=== PATIENT | female | born 1935 | race Caucasian/White ===

== ENCOUNTER 2018-11-17 20:54 | Inpatient (IN) | payer BC, MEDICARE ==
[2018-11-18] MEDS: traMADol 50 MG Tab PO PRN (01:21)
[2018-11-18] MEDS: CARVEDILOL 12.5 MG PO SCH ×4 (01:22→20:17)
--- NOTE | 2018-11-18 01:31 | ADMIT ---
DATE OF SERVICE: 11/17/2018 HISTORY OF PRESENT ILLNESS: She is admitted to observation for weakness involving both lower legs, mild dehydration, and she has renal disease. Her GFR is 28 tonight. I have not been able to compare that with the previous lab yet. The patient is not having any pain. She does not feel sick. She just has weakness that started yesterday and it got worse today to the point, where she is unable to stand or walk. We will monitor her input and output. An IV was attempted in the emergency room unsuccessfully due to poor veins. She states that she should be able to drink enough water and we will see how it goes tomorrow morning. If needed, we will consider an IV at that time. PHYSICAL EXAMINATION: VITAL SIGNS: This evening; blood pressure 158/89, pulse 67, she is afebrile, O2 sats are 96%, and respirations 16. LUNGS: Have decreased air exchange, but they are otherwise clear. CARDIAC: Heart sounds distinct. I do not hear a murmur today. SKIN: Warm and dry. EXTREMITIES: Her lower extremities reveal no edema and no pain to touch. HEENT: Her oral exam reveals mucous membranes are dry. TREATMENT PLAN: We will monitor the patient to try to increase her fluid intake and get her back on her medications, which she has not taken for a day or so. CRS/MODL /[id number] MTDD
[2018-11-18] MEDS ORDERED: Omeprazole 20 MG Cap.CR ONE (03:33)
[2018-11-18] MEDS: Non-Formulary Medication 1 Each (Omeprazole [Omeprazole] 20 MG) PO SCH ×2 (03:37→11:07)
[2018-11-18] MEDS ORDERED: Acetaminophen 650 MG Tab.ER ONE (07:53)
[2018-11-18] MEDS: LOSARTAN 100 MG PO SCH (07:55)
[2018-11-18] MEDS: Non-Formulary Medication 1 Each (Acetaminophen [Tylenol Arthritis] 650 MG) PO SCH (07:56)
[2018-11-18] MEDS ORDERED: FLUOXETINE HCL 20 MG PO SCH (08:00)
[2018-11-18] MEDS ORDERED: OXYBUTYNIN 5 MG PO SCH (08:00)
[2018-11-18] MEDS ORDERED: Non-Formulary Medication 1 Each (Levothyroxine [Synthroid] 88 MCG) PO SCH (08:00)
[2018-11-18] MEDS ORDERED: Levothyroxine 100 MCG Tab**PT OWN PO SCH (08:00)
[2018-11-18] MEDS ORDERED: HYDROXYCHLOROQUINE 200 MG PO SCH (08:00)
[2018-11-18] MEDS ORDERED: Oxybutynin 5 MG Tab.ER PO SCH (11:15)
[2018-11-18] MEDS ORDERED: DULoxetine 20 MG Cap PO SCH (11:15)
[2018-11-18] MEDS: Sodium Chloride 0.9% 1,000 ML IV SCH ×2 (11:30→23:32)
[2018-11-18] MEDS ORDERED: Docusate Sodium 100 MG Cap ONE (11:31)
--- NOTE | 2018-11-18 11:31 | PN ---
DATE OF VISIT: 11/18/2018 SUBJECTIVE: An 82-year-old lady who was admitted to observation last night through the emergency room for weakness and dehydration. She had bilateral leg weakness, mainly involving the lower legs, and was unable to walk. She has been resting quietly since last night. She did eat her breakfast. She has been drinking fluids fairly well. She did get up and go to the bathroom with assist x3 once this morning. The patient states that she feels okay. She has some chronic pain in the epigastric area, but she states she has had this for years. She also has had complaints of her legs being twitching or jumping. She states this did happen a couple of times during the night. Further questioning reveals that she does have history of restless legs syndrome and her daughter did bring in a bottle of Requip from home that we were not aware of. There seems to be several confusing things with her medications at this time. OBJECTIVE: VITAL SIGNS: Vital signs today are very good. Blood pressure 126/ 80, O2 sats are 94% on room air, pulse 64. HEENT: Oral mucous membranes are quite dry. Tonsils are not enlarged or injected. Pharynx is not inflamed. NECK: Supple. LUNGS: Clear. SKIN: Warm and dry. EXTREMITIES: Examining the patient's lower legs reveals skin is intact with no swelling and there is no tenderness with palpation of her lower legs today. ASSESSMENT AND PLAN: We will try to get an IV started today. If successful, we will give her some IV fluids starting at 75 mL an hour. We will change her pain medications, switching her Tylenol No.3 to t.i.d. and Ultram to p.r.n. and we will restart her Requip today. The patient's daughter is here at this time. We had a conversation about the patient living independently. It has been going well until lately. She may need to stay with us longer than a day or two if she does not respond to these initial treatment measures. I am not sure that she was taking her medications very accurately either since there has been pill bottle showing up on at least 3 different occasions that she has had, some of them are very old, but I went through her meds with nursing staff today and we tried to get more accurate on which she is taking according to her most recent med list taken from the clinic. CRS/MODL /[id number] MTDD
[2018-11-18] MEDS: Docusate Sodium 100 MG Cap PO PRN (11:55)
[2018-11-18] MEDS ORDERED: Ondansetron 4 MG/2 ML SDV IVPUSH PRN (12:45)
[2018-11-18] MEDS ORDERED: Ondansetron 4 MG/2 ML SDV ONE (12:47)
[2018-11-18] MEDS: Non-Formulary Medication 1 Each (Cholecalciferol (Vitamin D3) [Vitamin D3] 2,000 UNITS) PO SCH (13:03)
[2018-11-18] MEDS: JANTOVEN 5 MG PO SCH (17:26)
[2018-11-18] MEDS: DULoxetine 20 MG Cap PO SCH (20:17)
[2018-11-18] MEDS: OXYBUTYNIN 10 MG PO SCH (20:18)
[2018-11-18] MEDS: rOPINIRole 0.25 MG Tab PO SCH (20:18)
[2018-11-18] MEDS ORDERED: Calcium Carbonate 500 MG Tab.Chew ONE (20:22)
[2018-11-18] MEDS ORDERED: Calcium Carbonate 500 MG Tab.Chew PO ONE (20:25)
[2018-11-19] MEDS: ACETAMINOPHEN PO PRN (01:02)
[2018-11-19] MEDS: CODEINE PO PRN (01:02)
[2018-11-19] MEDS ORDERED: Ondansetron 4 MG Tab.DIS ONE (06:34)
[2018-11-19] MEDS: traMADol 50 MG Tab PO PRN ×2 (06:47→21:41)
[2018-11-19] MEDS ORDERED: Ondansetron 4 MG Tab.DIS PO PRN (06:48)
[2018-11-19] MEDS: Levothyroxine 100 MCG Tab PO SCH (07:08)
[2018-11-19] MEDS: Levothyroxine 50 MCG Tab PO SCH (07:09)
[2018-11-19] MEDS ORDERED: Furosemide 20 MG Tab**PT OWN PO SCH (08:00)
[2018-11-19] MEDS: Non-Formulary Medication 1 Each (Cholecalciferol (Vitamin D3) [Vitamin D3] 2,000 UNITS) PO SCH (08:02)
[2018-11-19] MEDS: LOSARTAN 100 MG PO SCH (08:03)
[2018-11-19] MEDS: CARVEDILOL 12.5 MG PO SCH ×2 (08:03→19:57)
[2018-11-19] MEDS: Docusate Sodium 100 MG Cap PO PRN ×2 (08:04→19:56)
[2018-11-19] MEDS: Non-Formulary Medication 1 Each (Acetaminophen [Tylenol Arthritis] 650 MG) PO SCH (08:07)
[2018-11-19] MEDS: Non-Formulary Medication 1 Each (Omeprazole [Omeprazole] 20 MG) PO SCH (08:07)
[2018-11-19] MEDS ORDERED: Magnesium Citrate Solution 296 ML Bottle ONE (11:43)
[2018-11-19] MEDS ORDERED: Magnesium Citrate Solution 296 ML Bottle PO ONE (12:20)
[2018-11-19] MEDS: fentaNYL 25 MCG/HR Transdermal Patch TRDERM SCH (15:41)
--- NOTE | 2018-11-19 17:27 | PN ---
DATE OF VISIT: 11/19/2018 SUBJECTIVE: She is here in the hospital on observation for weakness and dehydration. Yesterday, we gave the patient IV fluids for about 18 hours before her IV infiltrated. We then discontinued the IV early this morning. She is still complaining of pain in the epigastric area today. She tells me this pain has been there for years, but she also has not had a bowel movement since Tuesday. I understand she has been passing gas well. She has no strength in her legs at all. They were using a lift for the patient to use, a bedside commode. The patient states that she otherwise feels fine. She is not sick. She has been eating and drinking well. We repeated some labs today. CBC shows her neutrophils are slightly elevated. White count is still normal. Basic metabolic panel shows her kidney function has improved. Her creatinine is now 1.09, BUN is 17 compared to 25, and her GFR is currently 48; it was 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 There is stool retention that is significant. The radiologist felt that the hernias were chronic condition and that the constipation factor could be making things worse. TREATMENT PLAN: Today, the patient was given magnesium citrate. We will see if this provides a bowel movement. If this does not work, we will give the patient an enema. We will try to reduce the pressure on the abdomen by cleaning her out and see how much things improve. She still has extreme weakness. She states that her muscle twitching in the legs did improve last night. She did start taking her Requip again we gave it to her yesterday. She had not been taking that for a while at home. The patient will be monitored overnight, and I feel that longer-term arrangements are going to be needed with her. I will hand the patient off to Dr. Coe in the morning, who is coming on-call. CRS/MODL /[id number] ZAKIA
[2018-11-19] MEDS: JANTOVEN 5 MG PO SCH (18:20)
[2018-11-19] MEDS: OXYBUTYNIN 10 MG PO SCH (19:57)
[2018-11-19] MEDS: DULoxetine 20 MG Cap PO SCH (19:57)
[2018-11-19] MEDS: rOPINIRole 0.25 MG Tab PO SCH (19:57)
--- NOTE | 2018-11-19 20:01 | CT ---
DATE OF SERVICE: 11/19/2018 CLINICAL DATA: Abdominal pain. UNENHANCED ABDOMEN AND PELVIC CT: Multislice acquisition through the abdomen and pelvis without IV or oral contrast was performed. No priors. There are linear densities in both lower lungs consistent with linear atelectasis or fibrosis. The lung bases are otherwise clear. The heart size is enlarged. There is calcification in the region of the mitral valve annulus. There is a large right-sided hiatal hernia. It does contain a portion of the stomach and a segment of the transverse colon. The liver is normal size with homogeneous attenuation. The patient is status post cholecystectomy. The spleen appears normal. The pancreas is atrophic but otherwise is unremarkable. The right and left adrenals appear normal. There is atrophy of both kidneys. No nephrocalcinosis or nephrolithiasis. No hydronephrosis or or hydroureter. The bladder is fluid filled. It appears normal. The patient is status post hysterectomy. No evidence of appendicitis. There is a large amount of stool present throughout the ascending and transverse colon. There is diverticulosis of the descending and sigmoid colon. No evidence of diverticulitis. No free air. No free fluid. No dilated loops of bowel. No adenopathy. The distal abdominal aorta is aneurysmal. It measures 3.2 cm in diameter. There is a left inguinal hernia containing multiple loops of bowel. No obstruction associated with it. There is degenerative disc disease throughout the lower thoracic and lumbar spine. There is anterolisthesis of L3 on L4. There is vacuum disc phenomena at multiple levels. No other significant findings. [id number] [facility]
[2018-11-20] MEDS: traMADol 50 MG Tab PO PRN ×2 (05:53→20:45)
[2018-11-20] MEDS: Levothyroxine 100 MCG Tab PO SCH ×2 (05:56→06:08)
[2018-11-20] MEDS: Levothyroxine 50 MCG Tab PO SCH ×2 (05:57→06:08)
[2018-11-20] MEDS ORDERED: Bisacodyl 10 MG Supp ONE (07:13)
[2018-11-20] MEDS: Furosemide 20 MG Tab PO SCH (08:00)
[2018-11-20] MEDS: Non-Formulary Medication 1 Each (Cholecalciferol (Vitamin D3) [Vitamin D3] 2,000 UNITS) PO SCH (08:30)
[2018-11-20] MEDS: LOSARTAN 100 MG PO SCH (08:31)
[2018-11-20] MEDS: Non-Formulary Medication 1 Each (Omeprazole [Omeprazole] 20 MG) PO SCH (08:32)
[2018-11-20] MEDS: Non-Formulary Medication 1 Each (Acetaminophen [Tylenol Arthritis] 650 MG) PO SCH (08:41)
[2018-11-20] MEDS: CARVEDILOL 12.5 MG PO SCH (08:45)
--- NOTE | 2018-11-20 12:42 | ER ---
HISTORY OF PRESENT ILLNESS: 82-year-old lady who comes in by ambulance with complaints of bilateral lower leg weakness. She states that this started yesterday. She had 1 episode where her legs were weak and they twitched a few times, then it seemed to get better. Today, she went to the bathroom and was unable to stand up. She states that her legs are very weak. She does not feel she can stand, and they are twitching more today. The patient does not feel sick. She has not had any falls or injuries. She states that she is not having any pain. OBJECTIVE: GENERAL APPEARANCE: The patient is awake and alert. No obvious distress. VITAL SIGNS: Reviewed. She is afebrile. Blood pressure 158/89, pulse 67, O2 sats are 96%. HEENT: Oral mucous membranes are dry. Tonsils are not enlarged or injected. Pharynx not inflamed. NECK: Supple. LUNGS: Clear with reduced air exchange throughout the lung baltazar. CARDIAC: Heart sounds distinct. No murmurs noted. EXTREMITIES: Examining the patient's lower legs reveal the skin is intact. There are multiple spider veins present on the lower legs and ankles. There is no swelling, and the legs are not twitching or moving abnormally today. Feet are cool. Pedal pulses are present. LABORATORY DATA: CBC is normal. Comprehensive metabolic panel shows a sodium level of 133, creatinine is 1.72, BUN is normal at 25. GFR is 28, calcium 8.4. Liver enzymes are normal. TSH is normal at 3.7. DIAGNOSES: 1. Leg weakness. 2. Mild dehydration. 3. Renal disease. I am not sure if this is new or old, I will check on this. ASSESSMENT AND PLAN: The patient will be admitted for observation. An IV was attempted but at this time was not successful. The patient states she can drink fluid, and nursing staff will give her extra water to drink. We will get a urine as well in the morning and monitor the patient to see how she does. CRS/MODL /[id number]
[2018-11-20] MEDS: Sodium Chloride 0.9% 1,000 ML IV SCH ×2 (15:06→22:14)
--- NOTE | 2018-11-20 17:00 | PCM.HP ---
H&P History of Present Illness - General Date of Service: 11/20/18 Admit Problem/Dx: Admission Diagnosis/Problem Admission Diagnosis/Problem Weakness Source of Information: Patient, Family History Limitations: Reports: Altered Mental Status - History of Present Illness Initial Comments - Free Text/Narative: This is a 82yo F with some confusion and possible altered mental status. Her daughter is present. She was placed in observation for leg weakness, dehydration and renal dysfunction. She has hyponatremia and confusion at this time. Per daughter she is still concerned that her mother is still weak as she lives at home alone. There are concerns of safety and falls at home. Onset of Symptoms: Reports: Gradual, Unknown/Unsure Duration of Symptoms: Reports: Chronic, Getting Worse Location: Reports: Generalized Severity: Moderate Improves with: Reports: None Worsens with: Reports: None Associated Symptoms: Reports: Confusion Back Pain Score (Numeric/FACES): 3 - Related Data Allergies/Adverse Reactions: Allergies Allergy/AdvReac Type Severity Reaction Status Date / Time Iodinated Contrast- Oral and Allergy Renal Verified 11/17/18 21:47 IV Dye Failure morphine Allergy Itching Verified 11/17/18 21:47 Sulfa (Sulfonamide Allergy Blisters Verified 11/17/18 21:47 Antibiotics) Home Medications: Home Meds Acetaminophen [Tylenol Arthritis] 650 mg PO DAILY 05/14/13 [History] Carvedilol 12.5 mg PO BID 05/14/13 [History] Cholecalciferol (Vitamin D3) [Vitamin D3] 2,000 units PO DAILY 05/14/13 [History ] FLUoxetine HCl [Fluoxetine HCl] 20 mg PO DAILY 05/14/13 [History] Furosemide 20 mg PO DAILY 05/14/13 [History] Hydroxychloroquine [Plaquenil] 200 mg PO BID 05/14/13 [History] Levothyroxine [Synthroid] 88 mcg PO DAILY 05/14/13 [History] Levothyroxine [Synthroid] 100 mcg PO DAILY 05/14/13 [History] Losartan [Cozaar] 100 mg PO DAILY 05/14/13 [History] Omeprazole 20 mg PO DAILY 05/14/13 [History] Oxybutynin 5 mg PO DAILY 05/14/13 [History] fentaNYL [Duragesic] 25 mcg 05/14/13 [History] traMADol [Ultram] 50 mg PO PRN 05/14/13 [History] Past Medical History HEENT History: Reports: Cataract, Macular Degeneration Cardiovascular History: Reports: Hypertension, Stents [employer] History: Reports: Musculoskeletal History: Reports: Arthritis, Back Pain, Chronic, Other (See Below) Other Musculoskeletal History: Bursitis Psychiatric History: Reports: Anxiety, Depression Endocrine/Metabolic History: Reports: Hypoparathyroidism - Infectious Disease History Infectious Disease History: Reports: Chicken Pox, Measles, Rheumatic Fever - Past Surgical History HEENT Surgical History: Reports: Cataract Surgery Musculoskeletal Surgical History: Reports: Knee Replacement, Shoulder Replacement, Other (See Below) Other Musculoskeletal Surgeries/Procedures:: Lumbar surgery 2x Social & Family History - Tobacco Use Smoking Status *Q: Former Smoker Years of Tobacco use: 30 Packs/Tins Daily: 2 Used Tobacco, but Quit: No Tobacco Use Comment: Patient already quitted smoking Second Hand Smoke Exposure: No - Caffeine Use Caffeine Use: Reports: Coffee - Recreational Drug Use Recreational Drug Use: No - Living Situation & Occupation Living situation: Reports: H&P Review of Systems - Review of Systems: Review Of Systems: ROS reveals no pertinent complaints other than HPI. Exam - Exam Exam: See Below - Vital Signs Vital Signs: Last Vital Signs Temp 36.3 C 11/20/18 15:10 Pulse 59 L 11/20/18 15:10 Resp 18 11/20/18 15:10 BP 129/62 11/20/18 15:10 Pulse Ox 92 L 11/20/18 15:10 Weight: 103.873 kg - Exam General: Alert, Cooperative, Other (confused) HEENT: PERRLA, Conjunctiva Clear, EACs Clear, EOMI Neck: Supple, Trachea Midline Lungs: Clear to Auscultation, Normal Respiratory Effort Cardiovascular: Regular Rate, Regular Rhythm GI/Abdominal Exam: Normal Bowel Sounds, Soft, Non-Tender Back Exam: Normal Inspection Extremities: Normal Inspection Peripheral Pulses: 2+: Dorsalis Pedis (L), Dorsalis Pedis (R) Skin: Warm, Dry, Intact Neurological: Cranial Nerves Intact Neuro Extensive - Mental Status: Alert, Normal Mood/Affect, Normal Cognition, Disorientation to Time, Inattentive, Memory Loss-Recent Events - Patient Data Lab Results Last 24 hrs: Laboratory Results - last 24 hr 11/20/18 11/20/18 Range/Units 07:30 09:00 WBC 9.1 (4.0-11.0) K/uL RBC 3.90 (3.80-5.80) M/uL Hgb 12.4 (11.5-16.5) g/dL Hct 37.3 (37.0-47.0) % MCV 96 (76-96) fL MCH 31.8 (27.0-32.0) pg MCHC 33.2 (31.0-35.0) g/dL RDW 12.8 (11.0-16.0) % Plt Count 309 (150-500) K/uL MPV 9.5 (6.0-10.0) fL Neut % (Auto) 78.9 H (45.0-70.0) % Lymph % (Auto) 13.1 L (20.0-40.0) % Mcintosh % (Auto) 6.4 (3.0-10.0) % Eos % (Auto) 1.3 (1.0-5.0) % Baso % (Auto) 0.3 (0.0-0.5) % Neut # (Auto) 7.16 (2.00-7.50) K/uL Lymph # (Auto) 1.19 L (1.50-4.00) K/uL Mcintosh # (Auto) 0.58 (0.20-0.80) K/uL Eos # (Auto) 0.12 (0.04-0.40) K/uL Baso # (Auto) 0.03 (0.02-0.10) K/uL Sodium 131 L (136-145) mmol/L Potassium 4.5 (3.5-5.1) mmol/L Chloride 95 L (98-107) mmol/L Carbon Dioxide 29.0 (21.0-32.0) mmol/L Anion Gap 11.5 (5.0-15.0) mmol/L BUN 18 (8-26) mg/dL Creatinine 1.03 H (0.55-1.02) mg/dL Est Cr Clr Drug Dosing 43.97 mL/min Estimated GFR (MDRD) 51 L (>60) MLS/MIN BUN/Creatinine Ratio 17.5 (6-25) Glucose 99 (74-100) mg/dL Calcium 8.2 L (8.5-10.1) mg/dL Total Bilirubin 0.6 (0.0-1.0) mg/dL AST 22 (15-37) U/L ALT 16 (12-78) U/L Alkaline Phosphatase 85 (46-116) U/L Total Protein 6.4 (6.4-8.2) g/dL Albumin 3.1 L (3.4-5.0) g/dL Globulin 3.3 (2.2-4.2) g/dL Albumin/Globulin Ratio 0.9 (0.8-2.0) Result Diagrams: 11/20/18 07:30 11/20/18 09:00 - Problem List (1) Confusion SNOMED Code(s): 953322117 ICD Code: R41.0 - DISORIENTATION, UNSPECIFIED Status: Acute Priority: High Current Visit: Yes (2) Hyponatremia SNOMED Code(s): 91357717 ICD Code: E87.1 - HYPO-OSMOLALITY AND HYPONATREMIA Status: Acute Priority : High Current Visit: Yes (3) Renal dysfunction Status: Chronic Priority: High Current Visit: Yes Problem List Initiated/Reviewed/Updated: Yes Orders Last 24hrs: Active Orders 24 hr Category Date Time Status Patient Status [ADT] Routine ADT 11/20/18 12:02 Active Oxygen Therapy [RC] PRN Care 11/20/18 12:02 Active Vital Signs [RC] Q4H Care 11/20/18 12:02 Active Consult to Occupational Therapy [OT Evaluation and Cons 11/20/18 12:02 Active Treatment] [CONS] Routine Consult to Physical Therapy [PT Evaluation and Cons 11/20/18 12:01 Active Treatment] [CONS] Routine BASIC METABOLIC PANEL,BMP [CHEM] AM Lab 11/21/18 05:11 Ordered BASIC METABOLIC PANEL,BMP [CHEM] AM Lab 11/22/18 05:11 Ordered BASIC METABOLIC PANEL,BMP [CHEM] AM Lab 11/23/18 05:11 Ordered CBC WITH AUTO DIFF [HEME] AM Lab 11/21/18 05:11 Ordered CBC WITH AUTO DIFF [HEME] AM Lab 11/22/18 05:11 Ordered CBC WITH AUTO DIFF [HEME] AM Lab 11/23/18 05:11 Ordered Acetaminophen [Tylenol Arthritis Pain] Med 11/21/18 08:00 Active 650 mg PO DAILY Carvedilol [Coreg] Med 11/20/18 20:00 Active 12.5 mg PO BID Cholecalciferol (Vitamin D3) [Vitamin D3] Med 11/21/18 08:00 Active 2,000 unit PO DAILY Furosemide [Lasix] Med 11/20/18 08:00 Active 20 mg PO DAILY Losartan [Cozaar] Med 11/21/18 08:00 Active 100 mg PO DAILY Omeprazole Med 11/21/18 07:00 Active 20 mg PO ACBREAKFAST Oxybutynin [Oxybutynin ER] Med 11/21/18 08:00 Active 10 mg PO DAILY Sodium Chloride 0.9% [Normal Saline] 1,000 ml Med 11/20/18 10:30 Active IV ASDIRECTED Warfarin [Coumadin] Med 11/20/18 18:00 Active 5 mg PO DAILY@1800 Medication Orders Acetaminophen (Tylenol Arthritis Pain) 650 mg PO DAILY [facility] Acetaminophen/Codeine Phosphate (Tylenol With Codeine No.3 300mg/30mg) 1 tab PO Q8H PRN PRN Reason: PAIN Last Admin: 11/19/18 01:02 Dose: 1 tab Carvedilol (Coreg) 12.5 mg PO BID [facility] Cholecalciferol (Vitamin D3) 2,000 unit PO DAILY [facility] Docusate Sodium (Colace) 100 mg PO BID PRN PRN Reason: Constipation Last Admin: 11/19/18 19:56 Dose: 100 mg Admin: 11/19/18 08:04 Dose: 100 mg Admin: 11/18/18 11:55 Dose: 100 mg Duloxetine HCl (Cymbalta) 20 mg PO BEDTIME [facility] Last Admin: 11/19/18 19:57 Dose: 20 mg Admin: 11/18/18 20:17 Dose: 20 mg Fentanyl (Duragesic) 25 mcg TRDERM Q72H [facility] Last Admin: 11/19/18 15:41 Dose: 25 mcg Furosemide (Lasix) 20 mg PO DAILY [facility] Last Admin: 11/20/18 08:00 Dose: Sodium Chloride (Normal Saline) 1,000 mls @ 150 mls/hr IV ASDIRECTED [facility] Last Admin: 11/20/18 15:06 Dose: 150 mls/hr Levothyroxine Sodium (Synthroid) 50 mcg PO ACBREAKFAST [facility] Last Admin: 11/20/18 06:08 Dose: Not Given Admin: 11/20/18 05:57 Dose: 50 mcg Admin: 11/19/18 07:09 Dose: 50 mcg Levothyroxine Sodium (Synthroid) 100 mcg PO ACBREAKFAST [facility] Last Admin: 11/20/18 06:08 Dose: Not Given Admin: 11/20/18 05:56 Dose: 100 mcg Admin: 11/19/18 07:08 Dose: 100 mcg Losartan Potassium (Cozaar) 100 mg PO DAILY [facility] Omeprazole (Omeprazole) 20 mg PO ACBREAKFAST [facility] Ondansetron HCl (Zofran) 4 mg IVPUSH Q4H PRN PRN Reason: Nausea/Vomiting Last Admin: 11/18/18 13:05 Dose: 4 mg Ondansetron HCl (Zofran Odt) 4 mg PO ONETIME PRN PRN Reason: Nausea Last Admin: 11/19/18 19:56 Dose: 4 mg Oxybutynin Chloride (Oxybutynin Er) 10 mg PO DAILY [facility] Ropinirole HCl (Requip) 0.25 - 0.5 mg PO BEDTIME [facility] Last Admin: 11/19/18 19:57 Dose: 0.5 mg Admin: 11/18/18 20:18 Dose: 0.5 mg Tramadol HCl (Ultram) 50 mg PO Q8HR PRN PRN Reason: Pain Last Admin: 11/20/18 05:53 Dose: 50 mg Admin: 11/19/18 21:41 Dose: 50 mg Admin: 11/19/18 06:47 Dose: 50 mg Admin: 11/18/18 01:21 Dose: 50 mg Warfarin Sodium (Coumadin) 5 mg PO DAILY@1800 [facility] Assessment/Plan Comment:: Patient to be admitted to inpatient for hyponatremia management, confusion and chronic renal dysfunction with ongoing generalized weakness. We will start PT this week and slowly increase her endurance and stability. Patient is a fall risk at this time and unsafe for home. Hopefully her sodium correction will improve her mental status.
[2018-11-20] MEDS ORDERED: Warfarin 5 MG Tab PO SCH (18:00)
[2018-11-20] MEDS: DULoxetine 20 MG Cap PO SCH (19:34)
[2018-11-20] MEDS: Carvedilol 12.5 MG Tab PO SCH (19:34)
[2018-11-20] MEDS: rOPINIRole 0.25 MG Tab PO SCH (19:35)
[2018-11-21] MEDS: Sodium Chloride 0.9% 1,000 ML IV SCH ×2 (04:20→18:26)
[2018-11-21] MEDS: traMADol 50 MG Tab PO PRN (04:46)
[2018-11-21] MEDS: Omeprazole 20 MG Cap.CR PO SCH (07:11)
[2018-11-21] MEDS: Levothyroxine 100 MCG Tab PO SCH (07:12)
[2018-11-21] MEDS: Levothyroxine 50 MCG Tab PO SCH (07:12)
[2018-11-21] MEDS ORDERED: Oxybutynin 5 MG Tab.ER ONE (08:16)
[2018-11-21] MEDS: Oxybutynin 5 MG Tab.ER PO SCH (08:34)
[2018-11-21] MEDS: Docusate Sodium 100 MG Cap PO PRN (08:34)
[2018-11-21] MEDS: Losartan 50 MG Tab PO SCH (08:35)
[2018-11-21] MEDS: Acetaminophen 650 MG Tab.ER PO SCH (08:35)
[2018-11-21] MEDS: Cholecalciferol (Vitamin D3) 2,000 Unit Cap PO SCH (08:35)
[2018-11-21] MEDS: Furosemide 20 MG Tab PO SCH (08:36)
[2018-11-21] MEDS: ACETAMINOPHEN PO PRN (08:36)
[2018-11-21] MEDS: CODEINE PO PRN (08:36)
[2018-11-21] MEDS: Carvedilol 12.5 MG Tab PO SCH ×2 (08:37→19:45)
--- NOTE | 2018-11-21 11:03 | PCM.PN ---
- General Info Date of Service: 11/21/18 Subjective Update: Patient continues to be confused. She has an altered mental status and unable to recall short term memory. She denies any issues or current concerns the past day. She states she feels tired and weak and unable to move. According to family her weakness has been present but never this severe. Family do mention issues with cognition and confusion that remain and that is not her baseline. Functional Status: Reports: Tolerating Diet, Other (patient unable to ambulate) - Review of Systems General: Reports: Weakness HEENT: Reports: No Symptoms Pulmonary: Reports: Shortness of Breath Cardiovascular: Reports: No Symptoms Gastrointestinal: Reports: No Symptoms Musculoskeletal: Reports: Back Pain Skin: Reports: No Symptoms Neurological: Reports: Confusion, Difficulty Walking, Weakness Psychiatric: Reports: Confusion - Patient Data Vitals - Most Recent: Last Vital Signs Temp 36.8 C 11/20/18 20:00 Pulse 72 11/21/18 08:37 Resp 20 11/20/18 20:00 BP 154/59 H 11/21/18 08:37 Pulse Ox 94 L 11/20/18 20:00 Weight - Most Recent: 103.873 kg I&O - Last 24 Hours: Intake & Output 11/20/18 11/21/18 11/21/18 22:59 06:59 14:59 Intake Total 1607 1957 Balance 1607 1957 Lab Results Last 24 Hours: Laboratory Results - last 24 hr 11/21/18 11/21/18 11/21/18 Range/Units 07:25 07:25 08:50 WBC 11.9 H D (4.0-11.0) K/uL RBC 3.70 L (3.80-5.80) M/uL Hgb 11.5 (11.5-16.5) g/dL Hct 35.7 L (37.0-47.0) % MCV 97 H (76-96) fL MCH 31.1 (27.0-32.0) pg MCHC 32.2 (31.0-35.0) g/dL RDW 13.1 (11.0-16.0) % Plt Count 285 (150-500) K/uL MPV 9.5 (6.0-10.0) fL Neut % (Auto) 77.1 H (45.0-70.0) % Lymph % (Auto) 13.0 L (20.0-40.0) % [place] % (Auto) 6.2 (3.0-10.0) % Eos % (Auto) 3.4 (1.0-5.0) % Baso % (Auto) 0.3 (0.0-0.5) % Neut # (Auto) 9.14 H (2.00-7.50) K/uL Lymph # (Auto) 1.54 (1.50-4.00) K/uL [place] # (Auto) 0.73 (0.20-0.80) K/uL Eos # (Auto) 0.40 (0.04-0.40) K/uL Baso # (Auto) 0.04 (0.02-0.10) K/uL PT 71.5 H D (9.0-11.5) sec INR 8.0 H* D (1.0-3.5) Sodium 131 L (136-145) mmol/L Potassium 4.5 (3.5-5.1) mmol/L Chloride 97 L (98-107) mmol/L Carbon Dioxide 27.4 (21.0-32.0) mmol/L Anion Gap 11.1 (5.0-15.0) mmol/L BUN 17 (8-26) mg/dL Creatinine 0.97 (0.55-1.02) mg/dL Est Cr Clr Drug Dosing 46.69 mL/min Estimated GFR (MDRD) 55 L (>60) MLS/MIN BUN/Creatinine Ratio 17.5 (6-25) Glucose 88 (74-100) mg/dL Calcium 7.5 L (8.5-10.1) mg/dL Med Orders - Current: Current Medications Acetaminophen (Tylenol Arthritis Pain) 650 mg PO DAILY [facility] Last Admin: 11/21/18 08:35 Dose: 650 mg Acetaminophen/Codeine Phosphate (Tylenol With Codeine No.3 300mg/30mg) 1 tab PO Q8H PRN PRN Reason: PAIN Last Admin: 11/21/18 08:36 Dose: 1 tab Carvedilol (Coreg) 12.5 mg PO BID [facility] Last Admin: 11/21/18 08:37 Dose: 12.5 mg Cholecalciferol (Vitamin D3) 2,000 unit PO DAILY [facility] Last Admin: 11/21/18 08:35 Dose: 2,000 unit Docusate Sodium (Colace) 100 mg PO BID PRN PRN Reason: Constipation Last Admin: 11/21/18 08:34 Dose: 100 mg Duloxetine HCl (Cymbalta) 20 mg PO BEDTIME [facility] Last Admin: 11/20/18 19:34 Dose: 20 mg Fentanyl (Duragesic) 25 mcg TRDERM Q72H [facility] Last Admin: 11/19/18 15:41 Dose: 25 mcg Furosemide (Lasix) 20 mg PO DAILY [facility] Last Admin: 11/21/18 08:36 Dose: 20 mg Sodium Chloride (Normal Saline) 1,000 mls @ 150 mls/hr IV ASDIRECTED [facility] Last Admin: 11/21/18 04:20 Dose: 150 mls/hr Levothyroxine Sodium (Synthroid) 50 mcg PO ACBREAKFAST [facility] Last Admin: 11/21/18 07:12 Dose: 50 mcg Levothyroxine Sodium (Synthroid) 100 mcg PO ACBREAKFAST [facility] Last Admin: 11/21/18 07:12 Dose: 100 mcg Losartan Potassium (Cozaar) 100 mg PO DAILY [facility] Last Admin: 11/21/18 08:35 Dose: 100 mg Omeprazole (Omeprazole) 20 mg PO ACBREAKFAST [facility] Last Admin: 11/21/18 07:11 Dose: 20 mg Ondansetron HCl (Zofran) 4 mg IVPUSH Q4H PRN PRN Reason: Nausea/Vomiting Last Admin: 11/18/18 13:05 Dose: 4 mg Ondansetron HCl (Zofran Odt) 4 mg PO ONETIME PRN PRN Reason: Nausea Last Admin: 11/19/18 19:56 Dose: 4 mg Oxybutynin Chloride (Oxybutynin Er) 10 mg PO DAILY [facility] Last Admin: 11/21/18 08:34 Dose: 10 mg Ropinirole HCl (Requip) 0.25 - 0.5 mg PO BEDTIME [facility] Last Admin: 11/20/18 19:35 Dose: 0.5 mg Sodium Chloride (Sodium Chloride) 1 gm PO BIDMEALS [facility] Tramadol HCl (Ultram) 50 mg PO Q8HR PRN PRN Reason: Pain Last Admin: 11/21/18 04:46 Dose: 50 mg Warfarin Sodium (Coumadin) 5 mg PO DAILY@1800 [facility] Last Admin: 11/20/18 17:34 Dose: 5 mg Discontinued Medications Acetaminophen (Tylenol Arthritis Pain) Confirm Administered Dose 650 mg .ROUTE .[facility] ONE Stop: 11/18/18 07:54 Last Admin: 11/18/18 11:57 Dose: Not Given Bisacodyl (Dulcolax) Confirm Administered Dose 10 mg .ROUTE .[facility] ONE Stop: 11/20/18 07:14 Last Admin: 11/20/18 07:25 Dose: 10 mg Calcium Carbonate/Glycine (Tums) Confirm Administered Dose 500 mg .ROUTE .[facility] ONE Stop: 11/18/18 20:23 Last Admin: 11/19/18 00:04 Dose: Not Given Calcium Carbonate/Glycine (Tums) 500 mg PO ONETIME ONE Stop: 11/18/18 20:26 Last Admin: 11/18/18 02:25 Dose: 500 mg Carvedilol (Coreg) 12.5 mg PO BID [facility] Last Admin: 11/20/18 08:45 Dose: 12.5 mg Docusate Sodium (Colace) Confirm Administered Dose 100 mg .ROUTE .[facility] ONE Stop: 11/18/18 11:32 Last Admin: 11/18/18 13:04 Dose: Not Given Duloxetine HCl (Cymbalta) 20 mg PO DAILY [facility] Last Admin: 11/18/18 20:20 Dose: Not Given Furosemide (Lasix) 20 mg PO DAILY [facility] Sodium Chloride (Normal Saline) 1,000 mls @ 75 mls/hr IV ASDIRECTED [facility] Last Admin: 11/18/18 23:32 Dose: 75 mls/hr Levothyroxine Sodium (Synthroid) 100 mcg PO DAILY [facility] Last Admin: 11/18/18 07:55 Dose: 100 mcg Magnesium Citrate (Citrate Of Magnesia) Confirm Administered Dose 296 ml .ROUTE .[facility] ONE Stop: 11/19/18 11:44 Last Admin: 11/19/18 12:20 Dose: 296 ml Magnesium Citrate (Citrate Of Magnesia) 296 ml PO ONETIME ONE Stop: 11/19/18 12:21 Last Admin: 11/19/18 14:47 Dose: Not Given Non-Formulary Medication (Acetaminophen [Tylenol Arthritis]) 650 mg PO DAILY [facility] Last Admin: 11/20/18 08:41 Dose: Not Given Non-Formulary Medication (Cholecalciferol (Vitamin D3) [Vitamin D3]) 2,000 units PO DAILY [facility] Last Admin: 11/20/18 08:30 Dose: Not Given Non-Formulary Medication (Fluoxetine Hcl [Fluoxetine Hcl]) 20 mg PO DAILY [facility] Last Admin: 11/18/18 11:05 Dose: Not Given Non-Formulary Medication (Hydroxychloroquine [Plaquenil]) 200 mg PO BID [facility] Last Admin: 11/18/18 11:06 Dose: Not Given Non-Formulary Medication (Levothyroxine [Synthroid]) 88 mcg PO DAILY [facility] Last Admin: 11/18/18 11:06 Dose: 50 mcg Losartan [Cozaar] (100 MgPt Own) 100 mg PO DAILY [facility] Last Admin: 11/20/18 08:31 Dose: 100 mg Non-Formulary Medication (Omeprazole [Omeprazole]) 20 mg PO DAILY [facility] Last Admin: 11/20/18 08:32 Dose: 20 mg Non-Formulary Medication (Oxybutynin [Oxybutynin]) 5 mg PO DAILY [facility] Last Admin: 11/18/18 20:20 Dose: Not Given Jantoven 5mg Tab (Pt Own) 5 each PO DAILY@1800 [facility] Last Admin: 11/19/18 18:20 Dose: 5 each Omeprazole (Omeprazole) Confirm Administered Dose 20 mg .ROUTE .[facility] ONE Stop: 11/18/18 03:34 Last Admin: 11/18/18 03:38 Dose: 20 mg Ondansetron HCl (Zofran) Confirm Administered Dose 4 mg .ROUTE .[facility] ONE Stop: 11/18/18 12:48 Last Admin: 11/18/18 13:06 Dose: Not Given Ondansetron HCl (Zofran Odt) Confirm Administered Dose 4 mg .ROUTE .[facility] ONE Stop: 11/19/18 06:35 Last Admin: 11/19/18 07:08 Dose: Not Given Oxybutynin Chloride (Oxybutynin Er) 10 mg PO DAILY [facility] Last Admin: 11/18/18 20:20 Dose: Not Given Oxybutynin Chloride (Oxybutynin Er) Confirm Administered Dose 5 mg .ROUTE .[facility] ONE Stop: 11/21/18 08:17 Last Admin: 11/21/18 08:34 Dose: Not Given Oxybutynin 10 Mg Er (Tab*Pt Own Med*) 0 each PO BEDTIME [facility] Last Admin: 11/19/18 19:57 Dose: 1 each - Exam General: Cooperative. No: Oriented HEENT: Pupils Equal, Pupils Reactive, EOMI Neck: Supple Lungs: Normal Respiratory Effort, Decreased Breath Sounds Cardiovascular: Regular Rate, Regular Rhythm GI/Abdominal Exam: Normal Bowel Sounds, Soft, Non-Tender Back Exam: Paraspinal Tenderness Extremities: Pedal Edema (1+) Peripheral Pulses: 2+: Dorsalis Pedis (L), Dorsalis Pedis (R) Skin: Warm, Dry, Intact Neurological: Other (decreased strength 3/5 in all extremities) - Problem List & Annotations (1) Confusion SNOMED Code(s): 279001698 Code(s): R41.0 - DISORIENTATION, UNSPECIFIED Status: Acute Priority: High Current Visit: Yes (2) Hyponatremia SNOMED Code(s): 36443596 Code(s): E87.1 - HYPO-OSMOLALITY AND HYPONATREMIA Status: Acute Priority : High Current Visit: Yes (3) Renal dysfunction Status: Chronic Priority: High Current Visit: Yes (4) Altered mental state SNOMED Code(s): 018338917 Code(s): R41.82 - ALTERED MENTAL STATUS, UNSPECIFIED Status: Acute Current Visit: Yes Qualifiers: Altered mental status type: disorientation Qualified Code(s): R41.0 - Disorientation, unspecified - Problem List Review Problem List Initiated/Reviewed/Updated: Yes - My Orders Last 24 Hours: My Active Orders 11/20/18 10:30 Sodium Chloride 0.9% [Normal Saline] 1,000 ml IV ASDIRECTED 11/20/18 12:01 Consult to Physical Therapy [PT Evaluation and Treatment] [CONS] Routine 11/20/18 12:02 Patient Status [ADT] Routine Oxygen Therapy [RC] PRN Consult to Occupational Therapy [OT Evaluation and Treatment] [CONS] Routine 11/22/18 05:11 BASIC METABOLIC PANEL,BMP [CHEM] AM CBC WITH AUTO DIFF [HEME] AM 11/23/18 05:11 BASIC METABOLIC PANEL,BMP [CHEM] AM CBC WITH AUTO DIFF [HEME] AM - Plan Plan:: Patient to be admitted to inpatient for hyponatremia management, confusion and chronic renal dysfunction with ongoing generalized weakness. We will start PT this week and slowly increase her endurance and stability. Patient is a fall risk at this time and unsafe for home. Hopefully her sodium correction will improve her mental status. 11/21/18 Patient will continue PT/OT. She is severely deconditioned and after PT was only able to take 1-2 steps. She did get short of breath and review of her history shows chronic epmhysema and COPD. We will continue hydration and recheck sodium levels in am. Continue to monitor confusion, likely due to hyponatremia. She has an elevate INR - anticoagulants placed on hold. Discussed fall risk and precautions with family and staff.
[2018-11-21] MEDS: Sodium Chloride 1 GM Tab PO SCH (18:21)
[2018-11-21] MEDS: rOPINIRole 0.25 MG Tab PO SCH (19:52)
[2018-11-21] MEDS: DULoxetine 20 MG Cap PO SCH (19:53)
[2018-11-22] MEDS: Sodium Chloride 0.9% 1,000 ML IV SCH ×3 (01:21→18:22)
[2018-11-22] MEDS: Omeprazole 20 MG Cap.CR PO SCH (08:10)
[2018-11-22] MEDS: Furosemide 20 MG Tab PO SCH (08:10)
[2018-11-22] MEDS: Levothyroxine 100 MCG Tab PO SCH (08:10)
[2018-11-22] MEDS: Oxybutynin 5 MG Tab.ER PO SCH (08:10)
[2018-11-22] MEDS: Cholecalciferol (Vitamin D3) 2,000 Unit Cap PO SCH (08:11)
[2018-11-22] MEDS: Levothyroxine 50 MCG Tab PO SCH (08:11)
[2018-11-22] MEDS: Sodium Chloride 1 GM Tab PO SCH ×2 (08:12→16:34)
[2018-11-22] MEDS: Carvedilol 12.5 MG Tab PO SCH ×2 (08:12→19:39)
[2018-11-22] MEDS: Losartan 50 MG Tab PO SCH (08:13)
[2018-11-22] MEDS: Acetaminophen 650 MG Tab.ER PO SCH (08:13)
--- NOTE | 2018-11-22 08:45 | PCM.PN ---
- General Info Date of Service: 11/22/18 Functional Status: Reports: Pain Controlled, Ambulating (1-2 steps per PT) - Review of Systems General: Reports: Weakness HEENT: Reports: No Symptoms Pulmonary: Reports: Shortness of Breath Cardiovascular: Reports: No Symptoms Gastrointestinal: Reports: No Symptoms Genitourinary: Reports: No Symptoms Musculoskeletal: Reports: Back Pain Neurological: Reports: Difficulty Walking, Weakness Psychiatric: Reports: Confusion - Patient Data Vitals - Most Recent: Last Vital Signs Temp 36.1 C 11/22/18 04:00 Pulse 69 11/22/18 08:12 Resp 18 11/22/18 04:00 BP 153/72 H 11/22/18 08:13 Pulse Ox 97 11/22/18 04:00 Weight - Most Recent: 103.873 kg I&O - Last 24 Hours: Intake & Output 11/21/18 11/22/18 11/22/18 22:59 06:59 14:59 Intake Total 400 150 Output Total 75 Balance 400 75 Lab Results Last 24 Hours: Laboratory Results - last 24 hr 11/21/18 11/22/18 11/22/18 Range/Units 08:50 07:00 07:05 WBC 11.7 H (4.0-11.0) K/uL RBC 3.53 L (3.80-5.80) M/uL Hgb 11.2 L (11.5-16.5) g/dL Hct 34.6 L (37.0-47.0) % MCV 98 H (76-96) fL MCH 31.7 (27.0-32.0) pg MCHC 32.4 (31.0-35.0) g/dL RDW 13.1 (11.0-16.0) % Plt Count 278 (150-500) K/uL MPV 9.4 (6.0-10.0) fL Neut % (Auto) 81.2 H (45.0-70.0) % Lymph % (Auto) 9.5 L (20.0-40.0) % [place] % (Auto) 5.8 (3.0-10.0) % Eos % (Auto) 3.2 (1.0-5.0) % Baso % (Auto) 0.3 (0.0-0.5) % Neut # (Auto) 9.46 H (2.00-7.50) K/uL Lymph # (Auto) 1.11 L (1.50-4.00) K/uL [place] # (Auto) 0.68 (0.20-0.80) K/uL Eos # (Auto) 0.37 (0.04-0.40) K/uL Baso # (Auto) 0.04 (0.02-0.10) K/uL PT 71.5 H D 69.3 H (9.0-11.5) sec INR 8.0 H* D 7.7 H* (1.0-3.5) Sodium (136-145) mmol/L Potassium (3.5-5.1) mmol/L Chloride (98-107) mmol/L Carbon Dioxide (21.0-32.0) mmol/L Anion Gap (5.0-15.0) mmol/L BUN (8-26) mg/dL Creatinine (0.55-1.02) mg/dL Est Cr Clr Drug Dosing mL/min Estimated GFR (MDRD) (>60) MLS/MIN BUN/Creatinine Ratio (6-25) Glucose (74-100) mg/dL Calcium (8.5-10.1) mg/dL 11/22/18 Range/Units 07:05 WBC (4.0-11.0) K/uL RBC (3.80-5.80) M/uL Hgb (11.5-16.5) g/dL Hct (37.0-47.0) % MCV (76-96) fL MCH (27.0-32.0) pg MCHC (31.0-35.0) g/dL RDW (11.0-16.0) % Plt Count (150-500) K/uL MPV (6.0-10.0) fL Neut % (Auto) (45.0-70.0) % Lymph % (Auto) (20.0-40.0) % [place] % (Auto) (3.0-10.0) % Eos % (Auto) (1.0-5.0) % Baso % (Auto) (0.0-0.5) % Neut # (Auto) (2.00-7.50) K/uL Lymph # (Auto) (1.50-4.00) K/uL [place] # (Auto) (0.20-0.80) K/uL Eos # (Auto) (0.04-0.40) K/uL Baso # (Auto) (0.02-0.10) K/uL PT (9.0-11.5) sec INR (1.0-3.5) Sodium 133 L (136-145) mmol/L Potassium 4.7 (3.5-5.1) mmol/L Chloride 98 (98-107) mmol/L Carbon Dioxide 25.5 (21.0-32.0) mmol/L Anion Gap 14.2 (5.0-15.0) mmol/L BUN 13 D (8-26) mg/dL Creatinine 0.93 (0.55-1.02) mg/dL Est Cr Clr Drug Dosing 48.69 mL/min Estimated GFR (MDRD) 57 L (>60) MLS/MIN BUN/Creatinine Ratio 14.0 (6-25) Glucose 86 (74-100) mg/dL Calcium 7.3 L (8.5-10.1) mg/dL Med Orders - Current: Current Medications Acetaminophen (Tylenol Arthritis Pain) 650 mg PO DAILY [facility] Last Admin: 11/22/18 08:13 Dose: 650 mg Carvedilol (Coreg) 12.5 mg PO BID [facility] Last Admin: 11/22/18 08:12 Dose: 12.5 mg Cholecalciferol (Vitamin D3) 2,000 unit PO DAILY [facility] Last Admin: 11/22/18 08:11 Dose: 2,000 unit Docusate Sodium (Colace) 100 mg PO BID PRN PRN Reason: Constipation Last Admin: 11/21/18 08:34 Dose: 100 mg Duloxetine HCl (Cymbalta) 20 mg PO BEDTIME [facility] Last Admin: 11/21/18 19:53 Dose: 20 mg Fentanyl (Duragesic) 25 mcg TRDERM Q72H [facility] Last Admin: 11/19/18 15:41 Dose: 25 mcg Furosemide (Lasix) 20 mg PO DAILY [facility] Last Admin: 11/22/18 08:10 Dose: 20 mg Sodium Chloride (Normal Saline) 1,000 mls @ 150 mls/hr IV ASDIRECTED [facility] Last Admin: 11/22/18 08:05 Dose: 150 mls/hr Levothyroxine Sodium (Synthroid) 50 mcg PO ACBREAKFAST [facility] Last Admin: 11/22/18 08:11 Dose: 50 mcg Levothyroxine Sodium (Synthroid) 100 mcg PO ACBREAKFAST [facility] Last Admin: 11/22/18 08:10 Dose: 100 mcg Losartan Potassium (Cozaar) 100 mg PO DAILY [facility] Last Admin: 11/22/18 08:13 Dose: 100 mg Omeprazole (Omeprazole) 20 mg PO ACBREAKFAST [facility] Last Admin: 11/22/18 08:10 Dose: 20 mg Ondansetron HCl (Zofran) 4 mg IVPUSH Q4H PRN PRN Reason: Nausea/Vomiting Last Admin: 11/18/18 13:05 Dose: 4 mg Ondansetron HCl (Zofran Odt) 4 mg PO ONETIME PRN PRN Reason: Nausea Last Admin: 11/19/18 19:56 Dose: 4 mg Oxybutynin Chloride (Oxybutynin Er) 10 mg PO DAILY [facility] Last Admin: 11/22/18 08:10 Dose: 10 mg Ropinirole HCl (Requip) 0.25 - 0.5 mg PO BEDTIME [facility] Last Admin: 11/21/18 19:52 Dose: 0.5 mg Sodium Chloride (Sodium Chloride) 1 gm PO BIDMEALS [facility] Last Admin: 11/22/18 08:12 Dose: 1 gm Discontinued Medications Acetaminophen (Tylenol Arthritis Pain) Confirm Administered Dose 650 mg .ROUTE .[facility] ONE Stop: 11/18/18 07:54 Last Admin: 11/18/18 11:57 Dose: Not Given Acetaminophen/Codeine Phosphate (Tylenol With Codeine No.3 300mg/30mg) 1 tab PO Q8H PRN PRN Reason: PAIN Last Admin: 11/21/18 08:36 Dose: 1 tab Bisacodyl (Dulcolax) Confirm Administered Dose 10 mg .ROUTE .[facility] ONE Stop: 11/20/18 07:14 Last Admin: 11/20/18 07:25 Dose: 10 mg Calcium Carbonate/Glycine (Tums) Confirm Administered Dose 500 mg .ROUTE .[facility] ONE Stop: 11/18/18 20:23 Last Admin: 11/19/18 00:04 Dose: Not Given Calcium Carbonate/Glycine (Tums) 500 mg PO ONETIME ONE Stop: 11/18/18 20:26 Last Admin: 11/18/18 02:25 Dose: 500 mg Carvedilol (Coreg) 12.5 mg PO BID [facility] Last Admin: 11/20/18 08:45 Dose: 12.5 mg Docusate Sodium (Colace) Confirm Administered Dose 100 mg .ROUTE .[facility] ONE Stop: 11/18/18 11:32 Last Admin: 11/18/18 13:04 Dose: Not Given Duloxetine HCl (Cymbalta) 20 mg PO DAILY [facility] Last Admin: 11/18/18 20:20 Dose: Not Given Furosemide (Lasix) 20 mg PO DAILY [facility] Sodium Chloride (Normal Saline) 1,000 mls @ 75 mls/hr IV ASDIRECTED [facility] Last Admin: 11/18/18 23:32 Dose: 75 mls/hr Levothyroxine Sodium (Synthroid) 100 mcg PO DAILY [facility] Last Admin: 11/18/18 07:55 Dose: 100 mcg Magnesium Citrate (Citrate Of Magnesia) Confirm Administered Dose 296 ml .ROUTE .[facility] ONE Stop: 11/19/18 11:44 Last Admin: 11/19/18 12:20 Dose: 296 ml Magnesium Citrate (Citrate Of Magnesia) 296 ml PO ONETIME ONE Stop: 11/19/18 12:21 Last Admin: 11/19/18 14:47 Dose: Not Given Non-Formulary Medication (Acetaminophen [Tylenol Arthritis]) 650 mg PO DAILY [facility] Last Admin: 11/20/18 08:41 Dose: Not Given Non-Formulary Medication (Cholecalciferol (Vitamin D3) [Vitamin D3]) 2,000 units PO DAILY [facility] Last Admin: 11/20/18 08:30 Dose: Not Given Non-Formulary Medication (Fluoxetine Hcl [Fluoxetine Hcl]) 20 mg PO DAILY [facility] Last Admin: 11/18/18 11:05 Dose: Not Given Non-Formulary Medication (Hydroxychloroquine [Plaquenil]) 200 mg PO BID [facility] Last Admin: 11/18/18 11:06 Dose: Not Given Non-Formulary Medication (Levothyroxine [Synthroid]) 88 mcg PO DAILY [facility] Last Admin: 11/18/18 11:06 Dose: 50 mcg Losartan [Cozaar] (100 MgPt Own) 100 mg PO DAILY [facility] Last Admin: 11/20/18 08:31 Dose: 100 mg Non-Formulary Medication (Omeprazole [Omeprazole]) 20 mg PO DAILY [facility] Last Admin: 11/20/18 08:32 Dose: 20 mg Non-Formulary Medication (Oxybutynin [Oxybutynin]) 5 mg PO DAILY [facility] Last Admin: 11/18/18 20:20 Dose: Not Given Jantoven 5mg Tab (Pt Own) 5 each PO DAILY@1800 [facility] Last Admin: 11/19/18 18:20 Dose: 5 each Omeprazole (Omeprazole) Confirm Administered Dose 20 mg .ROUTE .[facility] ONE Stop: 11/18/18 03:34 Last Admin: 11/18/18 03:38 Dose: 20 mg Ondansetron HCl (Zofran) Confirm Administered Dose 4 mg .ROUTE .[facility] ONE Stop: 11/18/18 12:48 Last Admin: 11/18/18 13:06 Dose: Not Given Ondansetron HCl (Zofran Odt) Confirm Administered Dose 4 mg .ROUTE [facility] ONE Stop: 11/19/18 06:35 Last Admin: 11/19/18 07:08 Dose: Not Given Oxybutynin Chloride (Oxybutynin Er) 10 mg PO DAILY [facility] Last Admin: 11/18/18 20:20 Dose: Not Given Oxybutynin Chloride (Oxybutynin Er) Confirm Administered Dose 5 mg .ROUTE .[facility]- [facility] ONE Stop: 11/21/18 08:17 Last Admin: 11/21/18 08:34 Dose: Not Given Oxybutynin 10 Mg Er (Tab*Pt Own Med*) 0 each PO BEDTIME [facility] Last Admin: 11/19/18 19:57 Dose: 1 each Tramadol HCl (Ultram) 50 mg PO Q8HR PRN PRN Reason: Pain Last Admin: 11/21/18 04:46 Dose: 50 mg Warfarin Sodium (Coumadin) 5 mg PO DAILY@1800 [facility] Last Admin: 11/20/18 17:34 Dose: 5 mg - Exam Quality Assessment: Supplemental Oxygen (patient had some desaturation to 80's) General: Cooperative, Other (confused with time and place) HEENT: Pupils Equal, Pupils Reactive, EOMI Neck: Supple Lungs: Normal Respiratory Effort, Decreased Breath Sounds Cardiovascular: Regular Rate, Regular Rhythm GI/Abdominal Exam: Normal Bowel Sounds, Non-Tender Back Exam: Paraspinal Tenderness Extremities: Pedal Edema (1+) Peripheral Pulses: 2+: Dorsalis Pedis (L), Dorsalis Pedis (R) Skin: Warm, Dry, Intact Neurological: No New Focal Deficit Psy/Mental Status: Normal Affect, Normal Mood - Problem List & Annotations (1) Confusion SNOMED Code(s): 471875853 Code(s): R41.0 - DISORIENTATION, UNSPECIFIED Status: Acute Priority: High Current Visit: Yes Annotation/Comment:: Patient remains confused. She does have fluctuations in cognition and altered mental state. We will continue to monitor for improvement as her sodium levels improve. (2) Hyponatremia SNOMED Code(s): 24320060 Code(s): E87.1 - HYPO-OSMOLALITY AND HYPONATREMIA Status: Acute Priority : High Current Visit: Yes Annotation/Comment:: Improvement today from 131 to 133 - we will continue current hydration and management. (3) Renal dysfunction Status: Resolved Priority: High Current Visit: Yes (4) Altered mental state SNOMED Code(s): 665823191 Code(s): R41.82 - ALTERED MENTAL STATUS, UNSPECIFIED Status: Acute Priority: High Current Visit: Yes Qualifiers: Altered mental status type: disorientation Qualified Code(s): R41.0 - Disorientation, unspecified (5) COPD (chronic obstructive pulmonary disease) SNOMED Code(s): 59410327 Code(s): J44.9 - CHRONIC OBSTRUCTIVE PULMONARY DISEASE, UNSPECIFIED Status : Acute Priority: High Current Visit: Yes Qualifiers: COPD type: emphysema Emphysema type: unspecified Qualified Code(s): J43.9 - Emphysema, unspecified Annotation/Comment:: We will consider oxygen setup prior to discharge and further medical management for shortness of breath secondary to COPD. (6) Severe muscle deconditioning SNOMED Code(s): 769283360 Code(s): R29.898 - OTH SYMPTOMS AND SIGNS INVOLVING THE MUSCULOSKELETAL SYSTEM Status: Chronic Priority: High Current Visit: Yes (7) Elevated INR SNOMED Code(s): 144465702 Code(s): R79.1 - ABNORMAL COAGULATION PROFILE Status: Acute Priority: High Current Visit: Yes - Problem List Review Problem List Initiated/Reviewed/Updated: Yes - My Orders Last 24 Hours: My Active Orders 11/21/18 Dinner High Protein Diet [DIET] 11/23/18 05:11 BASIC METABOLIC PANEL,BMP [CHEM] AM CBC WITH AUTO DIFF [HEME] AM - Plan Plan:: Patient to be admitted to inpatient for hyponatremia management, confusion and chronic renal dysfunction with ongoing generalized weakness. We will start PT this week and slowly increase her endurance and stability. Patient is a fall risk at this time and unsafe for home. Hopefully her sodium correction will improve her mental status. 11/21/18 Patient will continue PT/OT. She is severely deconditioned and after PT was only able to take 1-2 steps. She did get short of breath and review of her history shows chronic epmhysema and COPD. We will continue hydration and recheck sodium levels in am. Continue to monitor confusion, likely due to hyponatremia. She has an elevate INR - anticoagulants placed on hold. Discussed fall risk and precautions with family and staff. 11/22/18 We will continue PT at this time and due to severe deconditioning she would benefit greatly for further rehabilitation as she is not safe for home. COPD - monitor and consider home oxygen and medications. Confusion/Altered mental state - we will continue to monitor and reassess with resolving sodium. Hyponatremia - continue current IVF and monitor breathing and airways. PT/INR -recheck is 7.7. We will continue to hold coumadin and recheck in 2 days.
[2018-11-22] MEDS: fentaNYL 25 MCG/HR Transdermal Patch TRDERM SCH (16:34)
[2018-11-22] MEDS: rOPINIRole 0.25 MG Tab PO SCH (19:38)
[2018-11-22] MEDS: DULoxetine 20 MG Cap PO SCH (19:39)
[2018-11-23] MEDS: Sodium Chloride 0.9% 1,000 ML IV SCH (01:52)
[2018-11-23] MEDS: Calcium Carbonate 500 MG Tab.Chew ONE ×2 (07:35→16:54)
[2018-11-23] MEDS: Acetaminophen 650 MG Tab.ER PO SCH (07:36)
[2018-11-23] MEDS: Sodium Chloride 1 GM Tab PO SCH ×2 (07:36→19:10)
[2018-11-23] MEDS: Oxybutynin 5 MG Tab.ER PO SCH (07:36)
[2018-11-23] MEDS: Cholecalciferol (Vitamin D3) 2,000 Unit Cap PO SCH (07:36)
[2018-11-23] MEDS: Furosemide 20 MG Tab PO SCH (07:37)
[2018-11-23] MEDS: Omeprazole 20 MG Cap.CR PO SCH (07:37)
[2018-11-23] MEDS: Levothyroxine 50 MCG Tab PO SCH (07:37)
[2018-11-23] MEDS: Levothyroxine 100 MCG Tab PO SCH (07:37)
[2018-11-23] MEDS: Losartan 50 MG Tab PO SCH (07:38)
[2018-11-23] MEDS: Carvedilol 12.5 MG Tab PO SCH (07:41)
[2018-11-23] MEDS: Docusate Sodium 100 MG Cap PO PRN (07:53)
[2018-11-23] MEDS ORDERED: methylPREDNISolone Sodium Succinate 125 MG/2 ML SDV IVPUSH SCH (08:00)
--- NOTE | 2018-11-23 13:02 | PCM.DCSUM1 ---
Discharge Summary - Discharge Data Discharge Date: 11/23/18 Discharge Disposition: DC/Tfer W/I Hosp To [facility] Condition: Stable - Discharge Diagnosis/Problem(s) (1) Confusion SNOMED Code(s): 787914867 ICD Code: R41.0 - DISORIENTATION, UNSPECIFIED Status: Acute Priority: High Current Visit: Yes Problem Details: Patient remains confused. She does have fluctuations in cognition and altered mental state. We will continue to monitor for improvement as her sodium levels improve. (2) Hyponatremia SNOMED Code(s): 68391073 ICD Code: E87.1 - HYPO-OSMOLALITY AND HYPONATREMIA Status: Acute Priority : High Current Visit: Yes Problem Details: Improvement today from 131 to 133 - we will continue current hydration and management. (3) Renal dysfunction Status: Resolved Priority: High Current Visit: Yes (4) Altered mental state SNOMED Code(s): 304981933 ICD Code: R41.82 - ALTERED MENTAL STATUS, UNSPECIFIED Status: Acute Priority: High Current Visit: Yes Qualifiers: Altered mental status type: disorientation Qualified Code(s): R41.0 - Disorientation, unspecified (5) COPD (chronic obstructive pulmonary disease) SNOMED Code(s): 34965844 ICD Code: J44.9 - CHRONIC OBSTRUCTIVE PULMONARY DISEASE, UNSPECIFIED Status : Acute Priority: High Current Visit: Yes Problem Details: We will consider oxygen setup prior to discharge and further medical management for shortness of breath secondary to COPD. Qualifiers: COPD type: emphysema Emphysema type: unspecified Qualified Code(s): J43.9 - Emphysema, unspecified (6) Severe muscle deconditioning SNOMED Code(s): 084066313 ICD Code: R29.898 - OTH SYMPTOMS AND SIGNS INVOLVING THE MUSCULOSKELETAL SYSTEM Status: Chronic Priority: High Current Visit: Yes (7) Elevated INR SNOMED Code(s): 266128739 ICD Code: R79.1 - ABNORMAL COAGULATION PROFILE Status: Acute Priority: High Current Visit: Yes (8) Delirium due to multiple etiologies SNOMED Code(s): 232880706 ICD Code: F05 - DELIRIUM DUE TO KNOWN PHYSIOLOGICAL CONDITION Status: Acute Priority: High Current Visit: Yes (9) COPD exacerbation SNOMED Code(s): 132058375 ICD Code: J44.1 - CHRONIC OBSTRUCTIVE PULMONARY DISEASE W (ACUTE) EXACERBATION Status: Acute Priority: High Current Visit: Yes - Patient Summary/Data Consults: Consultations 11/20/18 12:01 Consult to Physical Therapy [PT Evaluation and Treatment] [CONS] Routine Please Evaluate and Treat. PT Reason for Consult: Strengthening This query below is only for informational purposes and is not editable. Admission Diagnosis/Problem: Weakness 11/20/18 12:02 Consult to Occupational Therapy [OT Evaluation and Treatment] [CONS] Routine Please Evaluate and Treat. OT Reason for Consult: ADL's This query below is only for informational purposes and is not editable. Admission Diagnosis/Problem: Weakness - Patient Instructions Diet: Regular Diet as Tolerated - Discharge Plan Prescriptions/Med Rec: fentaNYL [Duragesic] 12 mcg TRDERM Q72H #10 patch Home Medications: Home Meds Acetaminophen [Tylenol Arthritis] 650 mg PO DAILY 05/14/13 [History] Carvedilol 12.5 mg PO BID 05/14/13 [History] FLUoxetine HCl [Fluoxetine HCl] 20 mg PO DAILY 05/14/13 [History] Furosemide 20 mg PO DAILY 05/14/13 [History] Hydroxychloroquine [Plaquenil] 200 mg PO BID 05/14/13 [History] Levothyroxine [Synthroid] 100 mcg PO DAILY 05/14/13 [History] Losartan [Cozaar] 100 mg PO DAILY 05/14/13 [History] Omeprazole 20 mg PO DAILY 05/14/13 [History] Oxybutynin 5 mg PO DAILY 05/14/13 [History] Acetaminophen [Tylenol Arthritis Pain] 650 mg PO DAILY tab.er 11/23/18 [Rx] Carvedilol [Coreg] 12.5 mg PO BID tablet 11/23/18 [Rx] Cholecalciferol (Vitamin D3) [Vitamin D3] 2,000 unit PO DAILY cap 11/23/18 [Rx] DULoxetine [Cymbalta] 20 mg PO BEDTIME cap 11/23/18 [Rx] Docusate Sodium [Colace] 100 mg PO BID PRN cap 11/23/18 [Rx] Losartan [Cozaar] 100 mg PO DAILY tablet 11/23/18 [Rx] Ondansetron [Zofran ODT] 4 mg PO ONETIME PRN tab.dis 11/23/18 [Rx] Sodium Chloride 1 gm PO TIDMEALS tablet 11/23/18 [Rx] fentaNYL [Duragesic] 12 mcg TRDERM Q72H #10 patch 11/23/18 [Rx] methylPREDNISolone Sod Succ [Solu-MEDROL] 125 mg IVPUSH DAILY sdv 11/23/18 [Rx] rOPINIRole [Requip] 0.25 - 0.5 mg PO BEDTIME tablet 11/23/18 [Rx] Forms: ED Department Discharge Referrals: PCP,None [Primary Care Provider] - - Discharge Summary/Plan Comment DC Time >30 min.: Yes Discharge Summary/Plan Comment: This is a frail 82yo F who has been unable to walk or even get out of bed. She has multifactorial issues that is causing her to be delirious. She has concerns of shortness of breath and her oxygen has dropped to 80's with some exertion ( not even getting out of bed). She needs full assistance for weight bearing to go to the bathroom. We will start her on IV solumedrol for likely acute on chronic COPD. She will need an overnight pulse ox and possible sleep study for oxygen. She has no prior diagnosis of COPD but prior xrays as far back as 2009 with Emphysema. We will also wean her fentanyl and oxycodone at this time. Despite hydration and salt tablets BID we are unable to normalize her hyponatremia. We will try salt tablets TID. We will have PT/OT continue management and re-evaluate as scheduled. - Patient Data Vitals - Most Recent: Last Vital Signs Temp 36.6 C 11/23/18 07:45 Pulse 71 11/23/18 07:45 Resp 16 11/23/18 07:45 BP 179/84 H 11/23/18 07:45 Pulse Ox 97 11/23/18 07:45 Weight - Most Recent: 103.873 kg I&O - Last 24 hours: Intake & Output 11/22/18 11/23/18 11/23/18 22:59 06:59 14:59 Intake Total 600 180 Output Total 400 230 Balance 200 -50 Lab Results - Last 24 hrs: Laboratory Results - last 24 hr 11/23/18 11/23/18 Range/Units 07:10 07:10 WBC 9.2 D (4.0-11.0) K/uL RBC 3.68 L (3.80-5.80) M/uL Hgb 11.7 (11.5-16.5) g/dL Hct 35.6 L (37.0-47.0) % MCV 97 H (76-96) fL MCH 31.8 (27.0-32.0) pg MCHC 32.9 (31.0-35.0) g/dL RDW 13.3 (11.0-16.0) % Plt Count 296 (150-500) K/uL MPV 9.6 (6.0-10.0) fL Neut % (Auto) 76.0 H (45.0-70.0) % Lymph % (Auto) 13.6 L (20.0-40.0) % [place] % (Auto) 5.4 (3.0-10.0) % Eos % (Auto) 4.5 (1.0-5.0) % Baso % (Auto) 0.5 (0.0-0.5) % Neut # (Auto) 6.97 (2.00-7.50) K/uL Lymph # (Auto) 1.25 L (1.50-4.00) K/uL [place] # (Auto) 0.50 (0.20-0.80) K/uL Eos # (Auto) 0.41 H (0.04-0.40) K/uL Baso # (Auto) 0.05 (0.02-0.10) K/uL Sodium 132 L (136-145) mmol/L Potassium 4.2 (3.5-5.1) mmol/L Chloride 97 L (98-107) mmol/L Carbon Dioxide 26.7 (21.0-32.0) mmol/L Anion Gap 12.5 (5.0-15.0) mmol/L BUN 9 D (8-26) mg/dL Creatinine 0.79 (0.55-1.02) mg/dL Est Cr Clr Drug Dosing 57.32 mL/min Estimated GFR (MDRD) > 60 (>60) MLS/MIN BUN/Creatinine Ratio 11.4 (6-25) Glucose 89 (74-100) mg/dL Calcium 7.7 L (8.5-10.1) mg/dL Med Orders - Current: Current Medications Acetaminophen (Tylenol Arthritis Pain) 650 mg PO DAILY [facility] Last Admin: 11/23/18 07:36 Dose: 650 mg Carvedilol (Coreg) 12.5 mg PO BID [facility] Last Admin: 11/23/18 07:41 Dose: 12.5 mg Cholecalciferol (Vitamin D3) 2,000 unit PO DAILY [facility] Last Admin: 11/23/18 07:36 Dose: 2,000 unit Docusate Sodium (Colace) 100 mg PO BID PRN PRN Reason: Constipation Last Admin: 11/23/18 07:53 Dose: 100 mg Duloxetine HCl (Cymbalta) 20 mg PO BEDTIME [facility] Last Admin: 11/22/18 19:39 Dose: 20 mg Fentanyl (Duragesic) 25 mcg TRDERM Q72H [facility] Last Admin: 11/22/18 16:34 Dose: 25 mcg Furosemide (Lasix) 20 mg PO DAILY [facility] Last Admin: 11/23/18 07:37 Dose: 20 mg Sodium Chloride (Normal Saline) 1,000 mls @ 150 mls/hr IV ASDIRECTED [facility] Last Admin: 11/23/18 01:52 Dose: 150 mls/hr Levothyroxine Sodium (Synthroid) 50 mcg PO ACBREAKFAST [facility] Last Admin: 11/23/18 07:37 Dose: 50 mcg Levothyroxine Sodium (Synthroid) 100 mcg PO ACBREAKFAST [facility] Last Admin: 11/23/18 07:37 Dose: 100 mcg Losartan Potassium (Cozaar) 100 mg PO DAILY [facility] Last Admin: 11/23/18 07:38 Dose: 100 mg Methylprednisolone Sodium Succinate (Solu-Medrol) 125 mg IVPUSH DAILY [facility] Stop: 11/25/18 23:59 Omeprazole (Omeprazole) 20 mg PO ACBREAKFAST [facility] Last Admin: 11/23/18 07:37 Dose: 20 mg Ondansetron HCl (Zofran) 4 mg IVPUSH Q4H PRN PRN Reason: Nausea/Vomiting Last Admin: 11/18/18 13:05 Dose: 4 mg Ondansetron HCl (Zofran Odt) 4 mg PO ONETIME PRN PRN Reason: Nausea Last Admin: 11/19/18 19:56 Dose: 4 mg Oxybutynin Chloride (Oxybutynin Er) 10 mg PO DAILY [facility] Last Admin: 11/23/18 07:36 Dose: 10 mg Ropinirole HCl (Requip) 0.25 - 0.5 mg PO BEDTIME [facility] Last Admin: 11/22/18 19:38 Dose: 0.5 mg Sodium Chloride (Sodium Chloride) 1 gm PO BIDMEALS [facility] Last Admin: 11/23/18 07:36 Dose: 1 gm Discontinued Medications Acetaminophen (Tylenol Arthritis Pain) Confirm Administered Dose 650 mg .ROUTE .STK-MED ONE Stop: 11/18/18 07:54 Last Admin: 11/18/18 11:57 Dose: Not Given Acetaminophen/Codeine Phosphate (Tylenol With Codeine No.3 300mg/30mg) 1 tab PO Q8H PRN PRN Reason: PAIN Last Admin: 11/21/18 08:36 Dose: 1 tab Bisacodyl (Dulcolax) Confirm Administered Dose 10 mg .ROUTE .[facility] ONE Stop: 11/20/18 07:14 Last Admin: 11/20/18 07:25 Dose: 10 mg Calcium Carbonate/Glycine (Tums) Confirm Administered Dose 500 mg .ROUTE .[facility] ONE Stop: 11/18/18 20:23 Last Admin: 11/19/18 00:04 Dose: Not Given Calcium Carbonate/Glycine (Tums) 500 mg PO ONETIME ONE Stop: 11/18/18 20:26 Last Admin: 11/18/18 02:25 Dose: 500 mg Calcium Carbonate/Glycine (Tums) Confirm Administered Dose 500 mg .ROUTE .[facility] ONE Stop: 11/23/18 07:32 Last Admin: 11/23/18 07:35 Dose: 500 mg Carvedilol (Coreg) 12.5 mg PO BID [facility] Last Admin: 11/20/18 08:45 Dose: 12.5 mg Docusate Sodium (Colace) Confirm Administered Dose 100 mg .ROUTE .[facility] ONE Stop: 11/18/18 11:32 Last Admin: 11/18/18 13:04 Dose: Not Given Duloxetine HCl (Cymbalta) 20 mg PO DAILY [facility] Last Admin: 11/18/18 20:20 Dose: Not Given Furosemide (Lasix) 20 mg PO DAILY [facility] Sodium Chloride (Normal Saline) 1,000 mls @ 75 mls/hr IV ASDIRECTED [facility] Last Admin: 11/18/18 23:32 Dose: 75 mls/hr Levothyroxine Sodium (Synthroid) 100 mcg PO DAILY [facility] Last Admin: 11/18/18 07:55 Dose: 100 mcg Magnesium Citrate (Citrate Of Magnesia) Confirm Administered Dose 296 ml .ROUTE .STK-MED ONE Stop: 11/19/18 11:44 Last Admin: 11/19/18 12:20 Dose: 296 ml Magnesium Citrate (Citrate Of Magnesia) 296 ml PO ONETIME ONE Stop: 11/19/18 12:21 Last Admin: 11/19/18 14:47 Dose: Not Given Non-Formulary Medication (Acetaminophen [Tylenol Arthritis]) 650 mg PO DAILY [facility] Last Admin: 11/20/18 08:41 Dose: Not Given Non-Formulary Medication (Cholecalciferol (Vitamin D3) [Vitamin D3]) 2,000 units PO DAILY [facility] Last Admin: 11/20/18 08:30 Dose: Not Given Non-Formulary Medication (Fluoxetine Hcl [Fluoxetine Hcl]) 20 mg PO DAILY [facility] Last Admin: 11/18/18 11:05 Dose: Not Given Non-Formulary Medication (Hydroxychloroquine [Plaquenil]) 200 mg PO BID [facility] Last Admin: 11/18/18 11:06 Dose: Not Given Non-Formulary Medication (Levothyroxine [Synthroid]) 88 mcg PO DAILY [facility] Last Admin: 11/18/18 11:06 Dose: 50 mcg Losartan [Cozaar] (100 MgPt Own) 100 mg PO DAILY [facility] Last Admin: 11/20/18 08:31 Dose: 100 mg Non-Formulary Medication (Omeprazole [Omeprazole]) 20 mg PO DAILY [facility] Last Admin: 11/20/18 08:32 Dose: 20 mg Non-Formulary Medication (Oxybutynin [Oxybutynin]) 5 mg PO DAILY [facility] Last Admin: 11/18/18 20:20 Dose: Not Given Jantoven 5mg Tab (Pt Own) 5 each PO DAILY@1800 [facility] Last Admin: 11/19/18 18:20 Dose: 5 each Omeprazole (Omeprazole) Confirm Administered Dose 20 mg .ROUTE .cooala - your brands-MED ONE Stop: 11/18/18 03:34 Last Admin: 11/18/18 03:38 Dose: 20 mg Ondansetron HCl (Zofran) Confirm Administered Dose 4 mg .ROUTE .cooala - your brands-MED ONE Stop: 11/18/18 12:48 Last Admin: 11/18/18 13:06 Dose: Not Given Ondansetron HCl (Zofran Odt) Confirm Administered Dose 4 mg .ROUTE .STK-MED ONE Stop: 11/19/18 06:35 Last Admin: 11/19/18 07:08 Dose: Not Given Oxybutynin Chloride (Oxybutynin Er) 10 mg PO DAILY [facility] Last Admin: 11/18/18 20:20 Dose: Not Given Oxybutynin Chloride (Oxybutynin Er) Confirm Administered Dose 5 mg .ROUTE .STK- MED ONE Stop: 11/21/18 08:17 Last Admin: 11/21/18 08:34 Dose: Not Given Oxybutynin 10 Mg Er (Tab*Pt Own Med*) 0 each PO BEDTIME [facility] Last Admin: 11/19/18 19:57 Dose: 1 each Tramadol HCl (Ultram) 50 mg PO Q8HR PRN PRN Reason: Pain Last Admin: 11/21/18 04:46 Dose: 50 mg Warfarin Sodium (Coumadin) 5 mg PO DAILY@1800 [facility] Last Admin: 11/20/18 17:34 Dose: 5 mg
[2018-11-23] MEDS ORDERED: Furosemide 40 MG/4 ML VIAL IVPUSH ONE ×2 (13:51→13:52)
[2018-11-23] MEDS ORDERED: Albuterol/Ipratropium 3.0-0.5 MG/3 ML Neb Soln NEB SCH (14:00)
[2018-11-23 14:33] VITALS: BP 173/69
--- NOTE | 2018-11-23 16:31 | CT ---
Date of Service: 11/23/18 Clinical Data: hyponatremia UNENHANCED BRAIN CT: Multislice acquisition through the brain without IV contrast was performed. There is diffuse cerebral atrophy. There are periventricular lucencies bilaterally consistent with small vessel ischemic change. No masses or mass effect. No intracranial hemorrhage. No evidence of acute or subacute infarct. No osseous abnormalities. IMPRESSION: No acute intracranial abnormalities. [id number] [facility]
[2018-11-23] MEDS ORDERED: Acetaminophen/HYDROcodone 325-5 MG Tab PO PRN (17:27)
[2018-11-23] MEDS ORDERED: Acetaminophen/HYDROcodone 325-10 MG Tab ONE (17:30)
== END 2018-11-23 19:12 | DRG 641 ==
LOC: LB.ED 20:54 → UNDOADMOB 23:30 → LB.MS 23:30 → OBSVTOIN 11-20 12:02
PROVIDERS: ADMIT Physician Assistant; ATTEND Physician Assistant
DX: E87.1 Hypo-osmolality and hyponatremia (principal); F05 Delirium due to known physiological condition; E86.0 Dehydration; J44.1 Chronic obstructive pulmonary disease with (acute) exacerbation; R00.1 Bradycardia, unspecified; N28.9 Disorder of kidney and ureter, unspecified; R53.1 Weakness; R25.3 Fasciculation; R10.13 Epigastric pain; I10 Essential (primary) hypertension; G25.81 Restless legs syndrome; K59.00 Constipation, unspecified; R41.0 Disorientation, unspecified; Z87.891 Personal history of nicotine dependence; Z91.81 History of falling; R26.2 Difficulty in walking, not elsewhere classified; R29.898 Other symptoms and signs involving the musculoskeletal system; R79.1 Abnormal coagulation profile; R41.82 Altered mental status, unspecified; H35.30 Unspecified macular degeneration; Z95.5 Presence of coronary angioplasty implant and graft; M19.90 Unspecified osteoarthritis, unspecified site; M54.9 Dorsalgia, unspecified; G89.29 Other chronic pain; F41.9 Anxiety disorder, unspecified; F32.9 Major depressive disorder, single episode, unspecified; E20.9 Hypoparathyroidism, unspecified; Z96.659 Presence of unspecified artificial knee joint; Z96.619 Presence of unspecified artificial shoulder joint; Z91.041 Radiographic dye allergy status; Z88.5 Allergy status to narcotic agent; Z88.2 Allergy status to sulfonamides
CPT/HCPCS: 36415 ×3; 74176; 80048; 80053 ×2; 81001; 84443; 85025 ×3; 99285; A9270 ×39; J2405; J7030 ×2; 70450; 83880; 84484; 85610; 93005; 96361; 96374; 97110-GO; 97110-GP; 97161-GP; 97165-GO; 97530-GP; 97535-GO; A0425; A0429; G0378; J1940; J2930; J7620-GY

== ENCOUNTER 2019-02-16 17:15 | Observation (INO) | payer MEDICARE ==
[2019-02-16] MEDS ORDERED: Sodium Chloride 0.9% 500 ML IV ONE (18:18)
[2019-02-16] MEDS ORDERED: Non-Formulary Medication 1 Each (Duloxetine [Cymbalta] 20 MG) PO SCH (20:00)
[2019-02-16] MEDS ORDERED: HYDROXYCHLOROQUINE 200 MG PO SCH (20:00)
[2019-02-16] MEDS ORDERED: FENTANYL 12 MCG TRDERM SCH (20:00)
[2019-02-16] MEDS ORDERED: CARVEDILOL 12.5 MG PO SCH ×2 (20:00)
[2019-02-16] MEDS ORDERED: Docusate Sodium 100 MG Cap PO PRN (21:15)
[2019-02-16] MEDS ORDERED: FENTANYL 25 MCG/HR TRDERM SCH (21:45)
[2019-02-16] MEDS ORDERED: Acetaminophen 650 MG Tab.ER ONE (22:45)
--- NOTE | 2019-02-16 22:45 | ER ---
DATE OF SERVICE: 02/16/2019 HISTORY OF PRESENT ILLNESS: An 83-year-old lady who comes in with family members after falling in her home. She states that she was getting up when her feet slipped, and she fell forward. She kind of slid to the ground. She did not sustain any injuries, but the family is concerned about weakness, and she also takes Coumadin. They are concerned that there could be some form of bleeding going on. The patient states that she feels okay. She has no new pain. She has multiple chronic pains. She is not having any trouble breathing and does not feel nauseated. OBJECTIVE: GENERAL APPEARANCE: The patient is awake and alert. She is lying quietly on the exam table. VITAL SIGNS: Reviewed. Temp is 97.8, pulse is 81, blood pressure 137/67, O2 sats are 92%. On physical exam, the patient has no head or neck pain with light palpation. Head is normocephalic. There is no chest wall pain or abdominal pain. She does have pain involving the right posterior lower back area just above the hip. There is a bruise here from a previous fall she tells me a while ago. There is no tenderness with palpation of the abdomen or legs. LUNGS: Clear. CARDIAC: Heart sounds distinct. I do not hear any murmurs today. LAB AND X-RAY: CBC is unremarkable. INR is 1.5. Metabolic panel shows a BUN of 35 and creatinine of 1.77, which is elevated compared to the most recent metabolic panel. DIAGNOSES: 1. Weakness. 2. Mild dehydration. TREATMENT PLAN: I had a talk with the patient and her daughter about going home tonight with supervision versus staying in the hospital. They would like to stay in the hospital. We did get the patient up with a walking belt and with assist of two, she was able to walk with her wheeled walker just a short distance. Her gait is short steps, but she appears to be fairly stable. After further discussion, it was decided that it would be best for her to be admitted to the hospital for observation. We will monitor intake and output and see how she does by tomorrow. She has been living at home independently and for the most part, it has been going okay. CRS/MODL /[id number] ZAKIA
--- NOTE | 2019-02-16 22:51 | ADMIT ---
DATE OF SERVICE: 02/16/2019 She was admitted through the emergency room with weakness and mild dehydration. The patient fell today at home. She has been living at home independently. She came in with her daughter and after evaluating the patient in the emergency room, there were no new injuries. Labs were done including a CBC, basic metabolic panel, and a PT/INR. The patient did have signs of mild dehydration, both on the metabolic panel and on the physical exam. She was able to drink 360 mL of liquid in the emergency room orally. An IV was attempted but was unsuccessful. As long as the patient is able to drink fairly well, and we will monitor her I and O in the hospital, we will not start an IV. She will be admitted for observation and rehydration issues and let us see how she does over the next day or so. PHYSICAL EXAMINATION: VITAL SIGNS: In the emergency room, temp 97.8, pulse 81, blood pressure 137/67, respirations 20, O2 sats are 92% on oxygen per nasal cannula. TREATMENT PLAN: The patient will be up only with assistance for bathroom privileges. She is not complaining of any new pain. She has some chronic pains. We will see how she does tomorrow morning. CRS/MODL /[id number] MTDChristine
[2019-02-16] MEDS ORDERED: DULOXETINE 20 MG PO SCH (23:00)
[2019-02-16] MEDS ORDERED: Omeprazole 20 MG Cap.CR**OWN MED PO SCH (23:00)
[2019-02-16] MEDS ORDERED: Warfarin 2.5 MG Tab**OWN MED PO SCH (23:00)
[2019-02-16] MEDS ORDERED: ROPINIROLE 0.25 MG PO SCH (23:00)
[2019-02-16] MEDS ORDERED: atorvaSTATin 40 MG Tab**OWN MED PO SCH (23:15)
[2019-02-16] MEDS: Carvedilol 6.25 MG Tab**OWN MED PO SCH (23:31)
[2019-02-17] MEDS ORDERED: Levothyroxine 50 MCG Tab**OWN MED PO SCH (07:00)
[2019-02-17] MEDS ORDERED: Levothyroxine 100 MCG Tab**OWN MED PO SCH (07:00)
[2019-02-17] MEDS ORDERED: SPIRONOLACTONE 12.5 MG PO SCH (08:00)
[2019-02-17] MEDS ORDERED: LEVOTHYROXINE 100 MCG PO SCH (08:00)
[2019-02-17] MEDS ORDERED: Non-Formulary Medication 1 Each (Acetaminophen [Tylenol Arthritis Pain] 650 MG) PO SCH (08:00)
[2019-02-17] MEDS ORDERED: Levothyroxine 75 MCG Tab PO SCH (08:00)
[2019-02-17] MEDS ORDERED: Omeprazole 20 MG Cap.CR**OWN MED PO SCH (08:00)
[2019-02-17] MEDS ORDERED: Furosemide 40 MG Tab**OWN MED PO SCH (08:00)
[2019-02-17] MEDS ORDERED: FLUOXETINE HCL 20 MG PO SCH (08:00)
[2019-02-17] MEDS ORDERED: Non-Formulary Medication 1 Each (Furosemide [Furosemide] 20 MG) PO SCH (08:00)
[2019-02-17] MEDS ORDERED: Non-Formulary Medication 1 Each (Acetaminophen [Tylenol Arthritis] 650 MG) PO SCH (08:00)
[2019-02-17] MEDS ORDERED: Aspirin 81 MG Tab.EC**OWN MED PO SCH (08:00)
[2019-02-17] MEDS ORDERED: Non-Formulary Medication 1 Each (Losartan [Cozaar] 100 MG) PO SCH ×2 (08:00)
[2019-02-17] MEDS ORDERED: Losartan 25 MG Tab**OWN MED PO SCH (08:00)
[2019-02-17] MEDS ORDERED: OXYBUTYNIN 5 MG PO SCH (08:00)
[2019-02-17] MEDS ORDERED: Non-Formulary Medication 1 Each (Omeprazole [Omeprazole] 20 MG) PO SCH (08:00)
[2019-02-17] MEDS ORDERED: OXYBUTYNIN 10 MG PO SCH (08:00)
[2019-02-17] MEDS ORDERED: Acetaminophen 650 MG Tab.ER ONE (08:34)
[2019-02-17] MEDS: Carvedilol 6.25 MG Tab**OWN MED PO SCH (09:30)
[2019-02-17 15:18] VITALS: BP 123/68; PULSE 69
[2019-02-17] MEDS ORDERED: Methocarbamol 500 MG Tab ONE (16:00)
[2019-02-17] MEDS ORDERED: Warfarin 5 MG Tab**OWN MED PO SCH (18:00)
[2019-02-17] MEDS ORDERED: ROPINIROLE 0.25 MG PO SCH (20:00)
--- NOTE | 2019-02-18 01:24 | DISCH ---
HOSPITAL COURSE: She was admitted through the emergency room last evening after falling. There were no injuries, but there was some weakness and the patient's family strongly wanted her put in the hospital for observation overnight. The patient has been doing well today. She only has some complaints of chronic back pain. She has been eating and drinking well. She has been able to go to the bathroom with nursing assist just to get in and out of bed. She has been using a walker, otherwise that she has from home. The patient states she feels okay today. She has not developed any new aches or pains. She still feels a little weak she tells me, but otherwise is okay. Nursing staff says that her appetite has been good and vital signs have been good as well. The patient's blood pressure today is 137/89. In talking with the patient, she states that she feels if she stays here longer, she would just feel a little better about going home. I advised the patient that we are really not providing any services here for her and she has different types of lifts at home which would help her get in and out of chairs and bed better than what we have here. I had a discussion with the patient's family and they agree that she should be able to do okay at home. They feel that she may be more lonesome or depressed than anything else, and there is some thoughts that she may be at a point in life where she needs to go into some sort of assisted living arrangement, I would agree with that. The patient will be discharged home today with family members. We will start her on a muscle relaxer, methocarbamol, per the patient's request. She will be given 500 mg to use b.i.d. for a few days and see if this helps with some of her chronic back pain. She otherwise has pain medications and a fentanyl patch that she uses at home. She is to continue on her current medications. LEE/ESTRELLA /[id number]
[2019-02-20] MEDS ORDERED: Non-Formulary Medication 1 Each (Warfarin [Coumadin] 2 MG) PO SCH (21:30)
== END 2019-02-17 16:15 | disposition home or self-care (01) ==
LOC: LB.ED 17:15 → UNDOADMOB 19:30 → LB.MS 19:30
PROVIDERS: ADMIT Physician Assistant; ATTEND Physician Assistant
DX: R53.1 Weakness (principal); E86.0 Dehydration; G89.29 Other chronic pain; M54.9 Dorsalgia, unspecified; Y92.009 Unspecified place in unspecified non-institutional (private) residence as the place of occurrence of the external cause; W19.XXXA Unspecified fall, initial encounter; Z99.89 Dependence on other enabling machines and devices; Z91.041 Radiographic dye allergy status; Z88.5 Allergy status to narcotic agent; Z88.2 Allergy status to sulfonamides
CPT/HCPCS: 36415; 80048; 85025; 85610; 99285; A9270; G0378; 99217; 99218